=== PATIENT | female | born 1985 | race Caucasian/White ===

== ENCOUNTER 2019-10-15 17:14 | Emergency (ER) | payer SELFPAY ==
[~2019-10-15] VITALS: Ht 167.6 cm; Wt 90.0 kg
[2019-10-16] MEDS ORDERED: SODIUM CHLORIDE 0.9% 1,000 ML IV ONE (01:56)
[2019-10-16 04:14] VITALS: BP 112/58
== END 2019-10-16 04:29 | disposition home or self-care (01) ==
LOC: ER 17:14
DX: R07.89 Other chest pain (principal); R60.0 Localized edema
CPT/HCPCS: 71045; 93005; 93970; 99284; J7030; Z7610